=== PATIENT | female | born 1950 | race Caucasian/White ===

== ENCOUNTER → 2018-09-28 | Outpatient (CLI) | payer MEDICARE, OTHER ==
[~2018-09-28] MED LIST: HYDSUL200 PO; NITR100CA PO
== END | disposition home or self-care (01) ==
LOC: LAB SHORT 15:44 → PLD 15:44
DX: L30.8 Other specified dermatitis (principal)
CPT/HCPCS: 88305

== ENCOUNTER → 2021-03-18 | Outpatient (CLI) | payer MEDICARE, OTHER | LOC: LAB SHORT 14:23 → LAB 14:23 | DX: D48.5 Neoplasm of uncertain behavior of skin (principal); L43.2 Lichenoid drug reaction | CPT/HCPCS: 88305 ==